=== PATIENT | female | born 1975 | race Two or more races ===

== ENCOUNTER 2023-04-16 10:15 | Inpatient (IN) | payer OTHER ==
[2023-04-16 17:09] LABS: COL EPI 107 SECONDS (82-175)
[2023-04-25] MEDS ORDERED: METRONIDAZOLE/SODIUM CHLORIDE 500 MG/100 ML PIGGYBACK IV SCH ×2 (01:00→15:30)
[2023-04-25] MEDS ORDERED: METRONIDAZOLE/SODIUM CHLORIDE 500 MG/100 ML PIGGYBACK IV ONE ×2 (13:15→19:34)
[2023-04-25] MEDS ORDERED: CEFTRIAXONE SODIUM 2,000 MG VIAL ONE (13:15)
[2023-04-25] MEDS ORDERED: LIDOCAINE HCL 1%/Epi 20ML VIAL IJ ONE (14:01)
[2023-04-25] MEDS ORDERED: BUPIVACAINE HCL/PF 0.5% 30ML ML ONE (14:01)
[2023-04-25] MEDS ORDERED: BUPIVACAINE HCL/Mpf 0.5% 10ML VIAL IJ SCH (15:30)
[2023-04-25] MEDS ORDERED: LIDOCAINE HCL/EPINEPHRINE 10 ML VIAL IJ SCH (15:30)
[2023-04-25] MEDS ORDERED: CEFTRIAXONE SODIUM 2,000 MG VIAL IV SCH (15:30)
[2023-04-25] MEDS ORDERED: DEXTROSE 50 % IN WATER 0.5 G/ML DISP.SYRIN IV PRN (16:00)
[2023-04-25] MEDS ORDERED: ONDANSETRON HCL 2 MG/ML VIAL IV PRN (16:00)
[2023-04-25] MEDS ORDERED: OxyCODONE HCL 5 MG TABLET (ROXICODONE) PO PRN (16:00)
[2023-04-25] MEDS ORDERED: MORPHINE SULFATE 4 MG/ML CARTRIDGE IV PRN (16:00)
[2023-04-25] MEDS ORDERED: INSULIN LISPRO 1,000 UNIT/10 ML UNITS SUBCUTANEO PRN (16:00)
[2023-04-25] MEDS ORDERED: 0.9 % SODIUM CHLORIDE 1,000 ML IV SCH (16:00)
[2023-04-25] MEDS ORDERED: GABAPENTIN 300 MG CAPSULE PO SCH (17:00)
[2023-04-25] MEDS ORDERED: POLYETHYLENE GLYCOL 3350 17 GM BLIST.PACK PO SCH (17:00)
[2023-04-25] MEDS ORDERED: ACETAMINOPHEN 500 MG GEL..CAP PO SCH (20:00)
[2023-04-25 20:08] LABS: HEMATOCRIT 31.2 % (36.0-45.00); HEMOGLOBIN 10.5 g/dL (12.0-15.00); MEAN CORPUSCULAR HEMOGLOBIN 28.3 pg (27.00-32.0); MEAN CORPUSCULAR HGB CONC 33.7 g/dl (32.0-36.0); PLATELET COUNT 330 K/uL (150-450); RED BLOOD COUNT 3.71 M/uL (4.00-6.00); RED CELL DISTRIBUTION WIDTH 14.1 % (11.5-14.5)
[2023-04-25 20:40] LABS: ALBUMIN 3.1 gm/dL (3.4-5.0); CALCIUM 8.3 mg/dL (8.5-10.1); CREATININE SERUM 0.45 mg/dL (0.55-1.02); GFR 148.71; MAGNESIUM 1.9 mg/dL (1.8-2.4); PHOSPHOROUS 2.8 mg/dL (2.5-4.9); POTASSIUM 3.93 mEq/L (3.5-5.1)
[2023-04-25] MEDS ORDERED: FAMOTIDINE/PF 20 MG/2 ML VIAL IV PUSH SCH (21:00)
[2023-04-26 05:53] LABS: HEMATOCRIT 31.5 % (36.0-45.00); HEMOGLOBIN 10.7 g/dL (12.0-15.00); MEAN CELL VOLUME 85.9 fL (80.00-100.00); MEAN CORPUSCULAR HEMOGLOBIN 29.3 pg (27.00-32.0); MEAN CORPUSCULAR HGB CONC 34.1 g/dl (32.0-36.0); PLATELET COUNT 313 K/uL (150-450); RED BLOOD COUNT 3.66 M/uL (4.00-6.00); RED CELL DISTRIBUTION WIDTH 13.8 % (11.5-14.5)
[2023-04-26 06:35] LABS: CALCIUM 8.2 mg/dL (8.5-10.1); CREATININE SERUM 0.5 mg/dL (0.55-1.02); GFR 131.68; PHOSPHOROUS 3.8 mg/dL (2.5-4.9); POTASSIUM 4.53 mEq/L (3.5-5.1)
[2023-04-26] MEDS ORDERED: HYOSCYAMINE SULFATE 0.125 MG TAB.SUBL SL SCH (09:00)
[2023-04-26] MEDS ORDERED: KETOROLAC TROMETHAMINE 30 MG VIAL IV ONE (09:00)
[2023-04-26] MEDS ORDERED: ENOXAPARIN SODIUM 40 MG/0.4 ML SYRINGE SUBCUTANEO SCH (17:00)
[2023-04-26] MEDS ORDERED: SOD FERRIC GLUC COMPLX/SUCROSE 62.5 MG in 0.9 % SODIUM CHLORIDE 50 ML IV SCH (17:04)
[2023-04-26] MEDS ORDERED: Cyanocobalamin/Mecobalamin 1 TAB.SL SL SCH (17:04)
[2023-04-27 06:47] LABS: HEMATOCRIT 29.8 % (36.0-45.00); HEMOGLOBIN 10.2 g/dL (12.0-15.00); MEAN CELL VOLUME 86.7 fL (80.00-100.00); MEAN CORPUSCULAR HEMOGLOBIN 29.8 pg (27.00-32.0); MEAN CORPUSCULAR HGB CONC 34.4 g/dl (32.0-36.0); PLATELET COUNT 292 K/uL (150-450); RED BLOOD COUNT 3.43 M/uL (4.00-6.00)
[2023-04-27 07:52] LABS: CALCIUM 8.3 mg/dL (8.5-10.1); CREATININE SERUM 0.33 mg/dL (0.55-1.02); POTASSIUM 3.84 mEq/L (3.5-5.1)
[2023-04-27] MEDS ORDERED: ENOXAPARIN SODIUM 40 MG/0.4 ML SYRINGE SUBCUTANEO SCH (09:00)
[2023-04-27 10:03] LABS: GFR 212.7
[2023-04-27] MEDS ORDERED: POTASSIUM PHOS,M-BASIC-D-BASIC 3 MM/ML VIAL IV ONE (11:00)
[2023-04-27] MEDS ORDERED: BENZONATATE 100 MG CAPSULE PO PRN (12:15)
[2023-04-28] MEDS ORDERED: HYOSCYAMINE0.125 M1 SL (09:51)
[2023-04-28] MEDS ORDERED: BENZONATATE100 MG PO (09:52)
[2023-04-28] MEDS ORDERED: TRAM1TAB98 PO (09:53)
[2023-04-28] MEDS ORDERED: PROTONIX40 MG PO (09:53)
[2023-04-28] MEDS ORDERED: PEPCID AC20 MG PO (09:53)
[2023-04-28] MEDS ORDERED: ALLEGRA-D 12 H1 EACH PO (09:53)
== END 2023-04-28 11:12 | disposition home or self-care (01) | DRG 331 ==
LOC: SURH 04-25 10:15 → O/R 04-25 10:20 → SURH 04-25 16:44
PROVIDERS: Internal Medicine Geriatric Medicine; ADMIT Surgery; ATTEND Surgery
PROC: 0DBP4ZZ Excision of Rectum, Percutaneous Endoscopic Approach (ICD-10-PCS; 2023-04-25)
PROC: 0DJD8ZZ Inspection of Lower Intestinal Tract, Via Natural or Artificial Opening Endoscopic (ICD-10-PCS; 2023-04-25)
PROC: 0DTN4ZZ Resection of Sigmoid Colon, Percutaneous Endoscopic Approach (ICD-10-PCS; principal; 2023-04-25 18:15)
DX: K57.32 Diverticulitis of large intestine without perforation or abscess without bleeding (principal)

== ENCOUNTER 2023-05-28 13:11 | Emergency (ER) | payer OTHER ==
[~2023-05-28] VITALS: Ht 154.9 cm; Wt 63.5 kg
[~2023-05-28 13:11] MED LIST: ALLEGRA-D 12 H1 EACH PO; BENZONATATE100 MG PO; HYOSCYAMINE0.125 M1 SL; PEPCID AC20 MG PO; PROTONIX40 MG PO; TRAM1TAB98 PO
[2023-05-28] MEDS ORDERED: 0.9 % SODIUM CHLORIDE 1,000 ML IV STA (16:11)
[2023-05-28] MEDS ORDERED: MEPERIDINE HCL/PF 50 MG/ML VIAL IM STA (16:12)
[2023-05-28 16:34] LABS: HEMATOCRIT 33.7 % (36.0-45.00); HEMOGLOBIN 11.6 g/dL (12.0-15.00); MEAN CELL VOLUME 84.5 fL (80.00-100.00); MEAN CORPUSCULAR HEMOGLOBIN 29.2 pg (27.00-32.0); MEAN CORPUSCULAR HGB CONC 34.5 g/dl (32.0-36.0); PLATELET COUNT 344 K/uL (150-450); RED BLOOD COUNT 3.99 M/uL (4.00-6.00); RED CELL DISTRIBUTION WIDTH 14.7 % (11.5-14.5)
[2023-05-28 16:51] LABS: PH,URINE 6.5 (5.0-8.0); URINE APPEARANCE Clear; URINE BILIRRUBIN Negative (NEGATIVE); URINE BLOOD Negative; URINE COLOR Yellow; URINE GLUCOSE Negative (NEGATIVE); URINE LEUKOCYTE Negative; URINE NITRATE Negative; URINE PROTEIN Negative (NEGATIVE); URINE UROBILINOGEN 0.2 E.U./dl
[2023-05-28 16:55] LABS: URINE BACTERIA 298.6 uL (0.0-1933); URINE EPITHELIAL CELLS 2.1 uL (0.0-38.8); URINE RBC 17.5 uL (0.0-20.8); URINE WBC 7.4 uL (0.0-23.2)
[2023-05-28 16:56] LABS: ALBUMIN 3.7 gm/dL (3.4-5.0); BILIRUBIN TOTAL 0.5 mg/dL (0.3-1.2); BILIRUBIN,CONJUGATED 0.13 mg/dL (0.0-0.2); BILIRUBIN,UNCONJUGATED 0.37 mg/dL (0.0-0.6); CALCIUM 9.4 mg/dL (8.5-10.1); CREATININE SERUM 0.66 mg/dL (0.55-1.02); GFR 95.59; POTASSIUM 3.68 mEq/L (3.5-5.1); TOTAL PROTEIN 8.3 gm/dL (6.4-8.2)
== END 2023-05-28 19:43 | disposition home or self-care (01) ==
LOC: ER 13:12
PROVIDERS: General Practice
DX: R10.84 Generalized abdominal pain (principal); K57.30 Diverticulosis of large intestine without perforation or abscess without bleeding; I10 Essential (primary) hypertension